=== PATIENT | male | born 1960 | race Caucasian/White ===

== ENCOUNTER 2024-05-03 15:46 | Inpatient (IN) | payer BC ==
[2024-05-03] MEDS ORDERED: Ondansetron 4 MG/2 ML SDV IVPUSH PRN (15:47)
[2024-05-03] MEDS: Sodium Chloride 0.9% 1,000 ML IV ONE (16:33)
[2024-05-03] MEDS: HYDROmorphone 1 MG/ML Syringe IVPUSH ONE (16:38)
[2024-05-03] MEDS: Piperacillin/Tazobactam 4.5 GM in Sodium Chloride 0.9% 100 ML IV ONE (16:40)
[2024-05-03 16:41] LABS: LACTIC ACID 1.7 mmol/L (0.4-2.0)
[2024-05-03] MEDS: Sodium Chloride 0.9% 1,000 ML IV SCH (17:48)
== END 2024-05-03 16:50 | DRG 279 ==
LOC: CC.MS 15:46
PROVIDERS: ADMIT Nurse Practitioner; ATTEND Nurse Practitioner
DX: K75.0 Abscess of liver (principal); R17 Unspecified jaundice; R74.8 Abnormal levels of other serum enzymes
CPT/HCPCS: 36415; 83605; 87040; J1171; J2543; J3490; J7030